=== PATIENT | female | born 1990 | race Caucasian/White ===

== ENCOUNTER 2024-01-18 21:23 | Outpatient (REF) | payer BC, SELFPAY ==
[2024-01-24 00:06] LABS: Age Gdln ACOG Testing Note (.); HPV Aptima Negative (Negative); IGP, Aptima HPV, rfx 16/18,45 Note (.)
== END 2024-01-18 21:24 | disposition home or self-care (01) ==
LOC: LAB 21:23
PROVIDERS: Visit Provider Obstetrics & Gynecology
DX: Z01.419 Encounter for gynecological examination (general) (routine) without abnormal findings (principal)
CPT/HCPCS: 87624; 88175

== ENCOUNTER 2024-11-29 14:21 | Outpatient (OUT) | payer BC, SELFPAY | END 2024-11-29 14:22 | disposition home or self-care (01) | LOC: PST 14:21 | PROVIDERS: PCP Nurse Practitioner Family; Visit Provider Obstetrics & Gynecology | DX: Z01.818 Encounter for other preprocedural examination (principal); N90.60 Unspecified hypertrophy of vulva; N94.10 Unspecified dyspareunia; N90.89 Other specified noninflammatory disorders of vulva and perineum ==

== ENCOUNTER 2024-12-07 06:04 | Day surgery (SDC) | payer BC, SELFPAY ==
--- OUTSIDE RECORDS SUMMARY | 2024-07-17 08:13 | XMS_ITS | Continuity of Care Document ---
Author Organization [facility] Address [address] [place] [address] Phone Care Team Providers Care Mixer Helper Name Role Phone Williamsmaritza SHANIQUE Milton Unavailable Unavailable Allergies, Adverse Reactions, Alerts Substance Reaction Status Criticality No Known Allergies Active No Inform ation Medications Medication Instructions Dosage Effective Dates (start - stop) Status Comments Wellbutrin XL 300 mg 24 hr tablet, extended release take 1 tablet by oral route every day 300 MG - Active metformin 500 mg tablet take 1 tablet by oral route 2 times every day with morning and evening meals 500 MG - Active One Daily Essential 400 mcg tablet - Active Vitamin D3 100 mcg (4,000 unit) capsule - Active Sprintec (28) 0.25 mg-35 mcg tablet take 1 tablet by oral route every day 1.00 tablet - No Longer Active Problems Condition Type Effective Dates (start - stop) Clini altaf Status Comments No Known Problems Procedures Procedure Date Bitewings Four Films Periodic Oral Eval Estab Patient 2023 Prophylaxis Adult High Risk Nutrit Couns For Control Of Alfred Dis Jun Oral Hygiene Instruction Prophylaxis Adult Nutrit Couns For Control Of Alfred Dis Feb Oral Hygiene Instruction Bitewings Four Films Intraoral-periapical 1st Film [id number] Additional Jul [id number] Additional Jul Prophylaxis Adult Low Risk Nutrit Couns For Control Of Alfred Dis Jul Oral Hygiene Instruction Prophylaxis Adult Oral Hygiene Instruction Oral Hygiene Instruction Resin Three Surfaces Anterior 1 Resin Three Surfaces Anterior 1 Treatment Completed Prophylaxis Adult Oral Hygiene Instruction Resin Three Surfaces Anterior 1 Resin Three Surfaces Anterior 1 Resin Three Surfaces Anterior 1 Resin Three Surfaces Anterior 1 Oral Hygiene Instruction Nutrit Couns For Control Of Alfred Dis Jun Limited Oral Eval Oral Hygiene Instruction Resin Composite 2s; Posterior 0 Resin Composite 2s; Posterior 0 Panoramic Film Bitewings Four Films Comp Oral Eval New/estab Patient 2019 Oral Hygiene Instruction Oral Hygiene Instruction Advance Directives Directive Yes / No Effective Date File Name No Information Encounters Encounter Description Practice Location Reason(s) For Visit Diagnoses Date Provider Providers Copied on Encounter [facility], [address] [place] [address], [id number], tel:[phone] Dental Clinic PA (chief complaint) Encounter for screening for dental disordersBody mass index [BMI] 26.0-26.9, adult Williamsmaritza Rockal. [address] [place], [place], [id number], [place]. tel:[phone] [facility], [address] [place] [address], [id number], [place] tel:[phone] Dental Clinic PA (chief complaint) Encounter for screening for dental disorders Mo BAY Milton. [address] [place], [place], [id number], [place]. tel:[phone] [facility], [address] [place] [address], [id number], [place] tel:[phone] Dental Clinic Adult Prophy (chief complaint) Encounter for screening for dental disorders Mo Allen. . tel:[phone] [facility], [address] [place], [place], [id number], [place] tel:[phone] Dental Clinic prophy (chief complaint) Encounter for screening for dental disorders Jean Claude Ramires. [address] [place], [address], [place]. tel:[phone] [facility], [address] [place], [place], [id number], [place] tel:[phone] Dental Clinic filling (chief complaint) Encounter for screening for dental disorders Brittani Gsapar. [address] [place], [place], [id number], [place]. tel:[phone] [facility], [address] [place], [place], [id number], [place] tel:[phone] Dental Clinic prophy (chief complaint) Encounter for screening for dental disorders Abdiaziz Boo. [address] [place], [place], [id number], [place]. tel:[phone] [facility], [address] [place], [place], [id number], [place] tel:[phone] Dental Clinic filling (chief complaint) Encounter for screening for dental disorders Brittani Gaspar. [address] [place], [place], [id number], [place]. tel:[phone] [facility], [address] [place], [place], [id number], [place] tel:[phone] Dental Clinic Encounter for screening for dental disorders Brittani Gaspar. [address] [place], [place], [id number], [place]. tel:[phone] [facility], [address] [place] [address], [id number], [place] tel:[phone] Dental Clinic filling (chief complaint) Encounter for screening for dental disorders Brittani DDS Huebrt. [address] [place], [place], [id number], [place]. tel:[phone] [facility], [address] [place], [place], [id number], [place] tel:[phone] Dental Clinic dental new (chief complaint) Encounter for screening for dental disorders Brittani TOUSSAINTS Hubert. [address] [place], [place], [id number], [place]. tel:[phone] Family History Family Member Type Diagnosis Age At Onset Mother Problem Alive and well Father Problem Alive and well Father Problem small cell carcinoma Payers Payer name Insurance type Covered green party ID Sharda alfredocipriano(elzbieta) [employer]am[employer] DPPO Dental Claims CI [id number] Social History Type Description Quantity Date Captured Comments Alcohol Use Details Caffeine Use Details coffee and soda 2 cups per day Tobacco Use Status Current non-smoker Smoking Status Never smoker Non-Smoking Tobacco Use Details : No Details Available : No Details Available Sex Female Sexual Orientation Straight or heterosexual Gender Identity Female Vital Signs Date / Time: Height Weight BMI Pulse Rate Blood Pressure Temperature Respiratory Rate Body Surface Area Head Circumference Head Circ. Percentile Wt./Jakub. Percentile BMI percentile Pulse Ox Inhaled Ox 12:16 PM 64.00 in 70.398 kg (155.20 lbs) 26.6 4 kg/m eter (2) 66 /min 122/78 mm[Hg] 98.80 F 1.78 meter(2) Chief Complaint And Reason For Visit From encounter dated '07/17/2024 12:13'. PA (chief complaint). Description: PA Reason For Referral Reason For Referral No Information Plan Of Treatment Date Type Action Status Goal Hep A. Due on du e Goal PRAPARE ASSESSMENT. Due on D due Goal Depression screening. Due on due Goal Influenza vaccine. Due on due Goal Tdap Vaccine. Due on 2023 due Goal Hepatitis C screening. Due o n due Goal HPV. Due on due Goal RLP. Due on due Goal Unhealthy drug use screening . Due on due Goal Tdap. Due on due Goal Dietary manageme nt education, guidance, and counseling completed Goal Depression screening. Due on due Goal Tdap. Due on due Goal PRAPARE ASSESSMENT. Due on A due Goal Tdap Vaccine. Due on 2022 due Goal RLP. Due on due Goal Influenza vaccine. Due on due Goal Influenza vaccine. Due on due Goal Hep A. Due on du e Goal Tdap Vaccine. Due on 2022 due Goal Tdap. Due on due Goal RLP. Due on due Goal PRAPARE ASSESSMENT. Due on due Goal Depression screening. Due on due Referral Ordered: West Cunningham DO timeframe: 6 Months. (related to Body mass index [BMI] 26.0-26.9, adult) ordered Appointment Sade Pradhan BOOKED History Of Present Illness Encounter Date Complaint History Of Prese nt Illness JOAQUÍN YANES JOAQUÍN YANES Adult Prophy Adult Prophy prophy prophy filling continue with tr eatment prophy prophy filling continue with tr eatment filling filling dental new dental new Functional Status Date Functional Assessmen t No Information Instructions Date Instruction Additional Infor mation Giving encouragement to exercise Related to Body mass index [BMI] 26.0-26.9, adult Dietary management e ducation, guidance, and counseling Related to Body mass index [BMI] 26.0-26.9, adult Assessments Type Assessment Date assessment Encounter for screening for dent al disorders assessment Body mass index [BMI] 26.0-26.9, adult Patient Care Teams Name Effective Dates (start - stop) Status Members No Information
[2024-11-29 14:53] VITALS: BP 96/62; PULSE 82; TEMP 36.4; O2SAT 98; BMI 26.4
[2024-12-07] VITALS (13 sets, daily range): BP systolic 90–121; BP diastolic 57–80; PULSE 70–102; TEMP 36.3–36.4; O2SAT 97–100; BMI 26.1
--- OUTSIDE RECORDS SUMMARY | 2024-12-07 06:08 | XMS_ITS | Encounter Summary ---
Author Organization [facility] Address [address] [place] [address] Care Team Providers Care Dragline Engineer Name Role Phone Emerita Mitchell Unavailable [phone] Encounter Details Date Type Department Care Team (Late st Contact Info) Description 01/23/2024 Abstract [facility] [address] [facility] [place] [address] Justin Boston, [address] [place], [place] [id number] Social History Tobacco Use Types Packs/Day Years Used Date Smoking Tobacco: Never Smokeless Tobacco: Never Alcohol Use Standard Drinks/Week Comments Yes 0 (1 standard drink = 0.6 oz pur e alcohol) occasional Comments Unknown Sex and Gender Information Value Date Recorded Sex Assigned at Female 09/01/2023 8:41 AM EST Legal Sex Female 8:26 PM EDT Gender Identity Female 09/01/2023 8:41 AM EST Sexual Orientation Straight 09/01/2023 8: 41 AM EST documented as of this encounter Plan of Treatment Upcoming Encounters Date Type Department Care Team (Late st Contact Info) Description 01/23/2025 4:00 PM EDT Office Visit [facility] [address] [place] [address] Justin Boston, DO [address] [place] [address] [address] [place], [place] [id number] documented as of this encounter Visit Diagnoses Not on filedocumented in this encounter Care Teams Dragline Engineer Relationship Specialty Start Date End Date Emerita Mitchell APRN-MIKE [address] [facility] [address] [id number] PCP - Sandee Jones 10/17/2305/17 documented as of this encounter
--- OUTSIDE RECORDS SUMMARY | 2024-12-07 06:08 | XMS_ITS | Clinical Summary ---
Author Organization [facility] Address [address] [place] [address] Care Team Providers Care Lottery Clerk Name Role Phone Unavailable Primary Care Provider Unavailabl e Allergies No known active allergies Medications cholecalciferol (Vitamin D-3) 25 MCG (1000 UT) capsule Take 25 mcg by mouth Daily Active metFORMIN XR (Glucophage-XR) 500 MG 24 hr tabletIndication s:Insulin resistance,PCOS (polycystic ovarian syndrome) Take 1 tablet (500 mg) by mouth in the evening. Take with meals Do not crush, chew, or split. 30 tablet 11 01/18/2024 Active medroxyPROGESTER one (Provera) 10 MG tabletIndication s:PCOS (polycystic ovarian syndrome) Take 1 tablet (10 mg) by mouth Daily for 10 days 10 tablet 01/18/2024 Active buPROPion XL (Wellbutrin XL) 300 MG 24 hr tablet Take 300 mg by mouth Daily Do not crush, chew, or split. Active tretinoin (Retin-A) 0.05 % creamIndications :Acne vulgaris Apply to face, once daily at evening/nig ht time. Wash off in AM. 30 day supply 45 g 09/12/2024 Active clindamycin (Clindagel) 1 % gelIndications:A cne vulgaris Apply to face once a day 60 g 09/12/2024 Active Active Problems No known active problems Encounters Date Type Department Care Team Description 11/12/2024 1:40 PM EDT Consult [facility] [address] [place] [address] [place] [address] Justin Boston, Pre-op examination; Labia enlarged; Labial irritation; Dyspareunia, female 11/12/2024 Bamboo flowsheet [facility] [address] [place] [address] Justin Boston, DO 11/06/2024 Travel 10/22/2024 2:40 PM EDT Office Visit [facility] OB [address] [place] [address] [place] [address] Justin Boston, DO Dyspareunia, female; Labia enlarged; Labial irritation 10/22/2024 Bamboo flowsheet [facility] [address] [place] [address] Justin Boston, 10/22/2024 Travel 09/12/2024 2:05 PM EST Office Visit [facility] [address] [place] [phone] Emerita Mitchell, FRAUD ANALYST-CARPENTRY INSTRUCTOR Acne vulgaris 09/12/2024 Bamboo flowsheet [facility] [address] [place] [address] Emerita Mitchell FRAUD ANALYST-CARPENTRY INSTRUCTOR 09/12/2024 Travel 09/11/2024 Travel from Last 3 Months Family History Medical History Relation Name Comments No Known Problems Daughter Cancer Father No Known Problems Son 1 No Known Problems Son 2 Melanoma Neg Hx Relation Name Status Comments Daughter Alive Father Alive Mother Alive Son 1 Alive Son 2 Alive Social History Tobacco Use Types Packs/Day Years Used Date Smoking Tobacco: Never Smokeless Tobacco: Never Tobacco Cessation:Counseling Given: Not Answered Alcohol Use Standard Drinks/Week Comments Yes 0 (1 standard drink = 0.6 oz pur e alcohol) occasional Comments Unknown Sex and Gender Information Value Date Recorded Sex Assigned at Female 09/01/2023 8:41 AM EST Legal Sex Female 8:26 PM EDT Gender Identity Female 09/01/2023 8:41 AM EST Sexual Orientation Straight 09/01/2023 8: 41 AM EST Last Filed Vital Signs Vital Sign Reading Time Taken Comments Blood Pressure 92/60 11/12/2024 1:58 PM EDT Pulse - - Temperature - - Respiratory Rate - - Oxygen Saturation - - Inhaled Oxygen Concentration - - Weight 69.6 kg (153 lb 8 oz) 11/12/2024 1:58 PM EDT Height 163.8 cm (5' 4.5 ) 08/23/2022 12:00 PM ES T Body Mass Index 25.94 08/23/2022 12:00 PM EST Plan of Treatment Upcoming Encounters Date Type Department Care Team (Late st Contact Info) Description 01/23/2025 4:00 PM EDT Office Visit [facility] [address] [place] [phone] Justin Boston DO [address] [place], [place] [id number] Health Maintenance Due Date Last Done Comments Influenza Vaccine (Season Ended) 2025 04/22/20 23, 06/23/2022 Cervical Cancer Screening 01/17/2029 HPV/Cotest 01/17/2029 Pap Smear 01/17/2029 01/18/2024 Procedures Procedure Name Priority Date/Time Associated Diagnosis Comments PAP SMEAR Routine 01/18/2024 12:00 AM EDT from Last 3 Months or Most Recently Relevant to Health Maintenance Results * Pap Smear (01/18/2024 12:00 AM EDT) Swab Cervical swab / Unknown Justin Boston DO LAB CYTOLOGY ORDERABLES Final Re sult EXTERNAL LAB from Last 3 Months or Most Recently Relevant to Health Maintenance Insurance BS
--- OUTSIDE RECORDS SUMMARY | 2024-12-07 06:08 | XMS_ITS | Encounter Summary ---
Author Organization [facility] Address [address] [place] [address] Care Team Providers Care Asbestos Pipe Supervisor Name Role Phone Emerita Mitchell Unavailable Encounter Details Date Type Department Care Team (Late st Contact Info) Description 01/25/2024 Orders Only [facility] [address] [facility] [place] [id number] Katlin Mariano [place] [address] [facility] [place] [address] Social History Tobacco Use Types Packs/Day Years [...] 01/23/2025 4:00 PM EDT Office Visit [facility] [address] [facility] [place] [address] Justin Boston DO [address] [facility] [place] [address] documented as of this encounter Procedures Procedure Name Priority Date/Time Associated Diagnosis Comments PAP SMEAR Routine 01/18/2024 12:00 AM EDT documented in this encounter Results * Pap Smear (01/18/2024 12:00 AM EDT) Swab Cervical swab / Unknown Justin Boston DO LAB CYTOLOGY ORDERABLES Final Re sult EXTERNAL LAB documented in this encounter Visit Diagnoses Not on filedocumented in this encounter Care Teams Asbestos Pipe Supervisor Relationship Specialty Start Date End Date Emerita Mitchell, PACKAGING SALES CONSULTANT-SALES COUNSELOR [address] [place] [address] PCP - Sandee Commercial 10/17/2305/17 documented as of this encounter
--- OUTSIDE RECORDS SUMMARY | 2024-12-07 06:08 | XMS_ITS | Clinical Summary ---
Author Organization [facility] Address [address] [place] [address] Phone Care Team Providers Care Airport Control Operator Name Role Phone Unavailable Primary Care Provider Unavailabl e Social History Tobacco Use Types Packs/Day Years Used Date Smoking Tobacco: Never Assessed Comments Unknown Sex and Gender Information Value Date Recorded Sex Assigned at Not on file Legal Sex Female 3:43 AM EST Gender Identity Not on file Sexual Orientation Not on file Plan of Treatment Not on file
--- OUTSIDE RECORDS SUMMARY | 2024-12-07 06:08 | XMS_ITS | Clinical Summary ---
Author Organization [facility] Address [address] [place] [address] Care Team Providers Care Recreation Leader Name Role Phone OmahaJairo pappas ANDRES - PROCUREMENT PROFESSIONAL LOGISTICS Primary Care Provider + Allergies No known active allergies Medications Multiple Vitamins-Minerals (THERAPEUTIC MULTIVITAMIN-MINE RALS) tablet Take 1 tablet by mouth daily Active vitamin D 25 MCG (1000 UT) CAPS Take by mouth A ctive tretinoin (RETIN-A) 0.025 % cream APPLY TO FACE AT BEDTIME TOLERATED, HOLD FOR DRYNESS OR IRRITATION Active zinc 50 MG TABS tablet Take 1 tablet by mouth daily Active clindamycin 1 % gel 5 Active metFORMIN (GLUCOPHAGE-XR) 500 MG extended release tablet 5 Active buPROPion (WELLBUTRIN XL) 300 MG extended release tabletIndications :Attention deficit hyperactivity disorder (ADHD), combined type Take 1 tablet by mouth every morning 90 tablet 1 5 Active Active Problems No known active problems Immunizations Immunization Administration Dates Next Due COVID-19, MODERNA BLUE borde r, Primary or Immunocompromised, (age 12y+), IM, 100 mcg/0.5mL 06/20/2021,11/11/2020,10/14/2020 Influenza, FLUCELVAX, (age 6 mo+), MDCK, Quadv PF, 0.5mL 04/22/2023,06/23/2022 Family History Medical History Relation Name Comments Asthma Brother 1 Ej Depression Brother 2 Christophelizabeth Gibbs High Cholesterol Brother 2 Christmelanie Lambkofi High Cholesterol Brother 3 Ej Gibbs Alcohol Abuse Father Flaquito Cancer Father Flaquito Small cell lung cancer. November 2021. Depression Father Flaquito High Cholesterol Father Flaquito High Cholesterol Paternal Aunt Cherise Keyesrle Hearing Loss Paternal Grandfather Eliseo Atrial Fibrillation Paternal Grandmother Dianna Magana rt High Cholesterol Paternal Grandmother Dianna Gibbs High Cholesterol Paternal Uncle Hoang Gibbs Relation Name Status Comments Brother 1 Ej Brother 2 Vel Gibbs Brother 3 Ej Lambkofi Father Flaquito Paternal Aunt Cherise Az Paternal Grandfather Eliseo Paternal Grandmother Dianna Gibbs Paternal Uncle Hoang Gibbs Social History Tobacco Use Types Packs/Day Years Used Date Smoking Tobacco: Never Smokeless Tobacco: Never Tobacco Cessation:Counseling Given: Yes Alcohol Use Standard Drinks/Week Comments Yes 1 (1 standard drink = 0.6 oz pure alcohol) Comsumption is rare. Typically on special occasions. [facility] Utilities Answer Date Recorded In the past 12 months has th e [employer], gas, oil, or water [email or web address] threatened to shut off services in your home? No 08/27/2024 Overall Financial Resource Strain (CARDIA) Answe r Date Recorded How hard is it for you to pa y for the very basics like food, housing, medical care, and heating? Not hard at all 03/29/2024 PHQ-2 Answer Date Recorded PHQ-9 Total Score 0 07/24/2024 Hunger Vital Sign Answer Date Recorded Within the past 12 months, y ou worried that your food would run out before you got the money to buy more. Never true 08/27/19 25 Within the past 12 months, t he food you bought just didn't last and you didn't have money to get more. Never true 08/27/2024 PRAPARE - Transportation Answer Date Re corded In the past 12 months, has l ack of transportation kept you from medical appointments or from getting medications? No 08/18 In the past 12 months, has l ack of transportation kept you from meetings, work, or from getting things needed for daily living? No 08/27/2024 Housing Stability Vital Sign Answer Juan e Recorded Unable to Pay for Housing in the Last Year Not o n file 03/18/2023 Number of Places Lived in the Last Year Not on f ile 03/18/2023 In the last 12 months, was t here a time when you did not have a steady place to sleep or slept in a long-term (including now)? No 03/18/2023 Housing Stability Vital Sign Answer Juan e Recorded In the last 12 months, was t here a time when you were not able to pay the mortgage or rent on time? No 08/27/2024 In the past 12 months, how m any times have you moved where you were living? 0 08/27/2024 At any time in the past 12 m [facility], were you homeless or living in a long-term (including now)? No 08/27/2024 Food Insecurity Answer Date Recorded Within the past 12 months, y ou worried that your food would run out before you got the money to buy more. 1 08/27/2024 Within the past 12 months, t he food you bought just didn't last and you didn't have money to get more. 1 08/27/2024 Comments No Sex and Gender Information Value Date Recorded Sex Assigned at Female 09/15/2023 6:33 PM EST Legal Sex Female 7:27 PM EDT Gender Identity Female 09/15/2023 6:33 PM EST Sexual Orientation Straight 09/15/2023 6: 33 PM EST Last Filed Vital Signs Vital Sign Reading Time Taken Comments Blood Pressure 118/74 08/27/2024 2:20 PM EST Pulse 105 08/27/2024 2:20 PM EST Temperature 37.1 C (98.7 F) 08/27/2024 2:20 PM EST Respiratory Rate - - Oxygen Saturation 98% 08/27/2024 2:20 PM EST Inhaled Oxygen Concentration - - Weight 69.1 kg (152 lb 6.4 oz) 08/27/2024 2:20 P M EST Height 162.6 cm (5' 4 ) 08/27/2024 2:20 PM EST Body Mass Index 26.16 08/27/2024 2:20 PM EST Plan of Treatment Health Maintenance Due Date Last Done Comments Varicella vaccine (1 of 2 - 13+ 2-dose series) 10/22/2003 HIV screen 2005 Hepatitis C screen 2008 DTaP/Tdap/Td vaccine (1 - Tdap) 2009 Hepatitis B vaccine (1 of 3 - 19+ 3-dose series) 2009 Pap smear 01/15/2018 01/15/2015 Cervical cancer screen 2020 HPV (without or with Pap) 2020 COVID-19 Vaccine (4 - 2023-2 5 season) 2024 06/20/2021, 11/11/2020, 10/14/2020 Flu vaccine (Season Ended) 02/15/202504/22, 06/23/2022 Depression Screen 07/24/2025 07/24/2024, 07/24/2024 HPV vaccine Aged Out No longer eligi ble based on patient's age to complete this topic Hepatitis A vaccine Aged Out No longe r eligible based on patient's age to complete this topic Hib vaccine Aged Out No longer eligi ble based on patient's age to complete this topic Meningococcal (ACWY) vaccine Aged Out No longer eligible based on patient's age to complete this topic Meningococcal B vaccine Aged Out No l onger eligible based on patient's age to complete this topic Pneumococcal 0-49 years Vaccine Aged Out No longer eligible b ased on patient's age to complete this topic Polio vaccine Aged Out No longer elig ible based on patient's age to complete this topic Procedures Procedure Name Priority Date/Time Associated Diagnosis Comments PAP SMEAR Routine 01/15/2015 from Last 3 Months or Most Recently Relevant to Health Maintenance Results * HM PAP SMEAR (01/15/2015) Historical Provider HEALTH MAINTENANCE Final Result from Last 3 Months or Most Recently Relevant to Health Maintenance Insurance [place] [employer] Care Teams Recreation Leader Relationship Specialty Start Date End Date Jairo Wheatley APRN - MIKE [address] [place] [id number] PCP - General Family Medicine 03/18/23
[2024-12-07 06:20] LABS: Basophils Percent Auto 0.8 % (0.2-2.0); Eosinophils Absolute Auto 0.2 10^3/uL (0.0-0.7); Eosinophils Percent Auto 3.3 % (0.9-7.0); Hematocrit 39.8 % (36.0-48.0); Hemoglobin 13.4 g/dL (12.0-16.0); Immature Granulocytes Abs Auto 0.01 10^3/uL (0.00-0.03); Immature Granulocytes Pct Auto 0.2 % (0.0-0.5); Lymphocytes Absolute Auto 1.7 10^3/uL (1.2-3.8); Lymphocytes Percent Auto 33.4 % (20.5-60.0); Mean Corpuscular HGB Conc 33.7 g/dL (29.9-35.2); Mean Corpuscular Hemoglobin 30.9 pg (26.7-34.0); Mean Corpuscular Volume 91.7 fL (81.0-99.0); Mean Platelet Volume 9.4 fL (9.5-13.5); Monocytes Absolute Auto 0.4 10^3/uL (0.3-0.8); Monocytes Percent Auto 7.5 % (1.7-12.0); Neutrophils Absolute Auto 2.9 10^3/uL (1.4-6.5); Neutrophils Percent Auto 54.8 % (43.0-75.0); Platelet Count 243 10^3/uL (150-450); Red Blood Count 4.34 10^6/uL (4.20-5.40); Red Cell Distribution Width 11.9 % (11.0-15.0); White Blood Count 5.2 10^3/uL (4.0-11.0)
[2024-12-07 06:43] LABS: HCG Quantitative <1 mIU/mL
[2024-12-07] MEDS: LACTATED RINGER'S SOLUTION 1,000 ML 50 ML IV ×2 (06:51→08:11)
[2024-12-07 06:52] LABS: Glucometer 84 mg/dL (74-106)
[2024-12-07] MEDS: BACITRACIN OINTMENT 28.4 GM TUBE 1 APPLIC TOPICAL (08:44)
--- NOTE | 2024-12-07 08:50 | PC.NURSE ---
Peripad changed for scant amount bloody drainage
[2024-12-07] MEDS: HYDROMORPHONE HCL 0.5 MG/0.5 ML SYRINGE IV ×2 (08:59→09:09)
--- NOTE | 2024-12-07 09:03 | PM.ONB ---
Brief Operative Note Date of procedure: 12/07/24 Pre-op diagnosis general: dyspareunia, enlarged labia minora Post-op diagnosis: same as pre-op Procedure: NAME OF PROCEDURE: [ bilateral labiaplasty] PROCEDURE: The patient was taken back to the Operating Room where she was prepped and draped in normal sterile fashion after being placed under general anesthesia without difficulty. She was also placed in the dorsal lithotomy position. the right labia minor was tented up using an alee clamp after being marked with a marker, the excess labia was removed using a knife and metzenbaum scissors, the base was coagulated using a bovie, the skin was reapproximated using 4-0 vicryl, this was performed on the contralateral side, excellent hemostasis was noted, All instruments were removed from the patient?s vagina. The patient tolerated the procedure well. Sponge, lap and needle counts were correct times two. The patient was taken to the Recovery Room in stable condition.Room in stable condition. Anesthesia: MAC Surgeon: Justin Boston Estimated blood loss (mL): 5 Pathology: other (rt and lt labia) Condition: stable Disposition: PACU Urinary Catheter Management Urinary Catheter Management Straight: Cath placed during this visit: no
--- NOTE | 2024-12-07 09:17 | PC.NURSE ---
peripad dry; ice pack in perineal area
[2024-12-07] MEDS: ONDANSETRON PF 4 MG/2 ML VIAL IV (09:48)
--- NOTE | 2024-12-07 10:01 | PC.NURSE ---
c/o nausea; no emesis; medicated with Zofran IV as ordered
[2024-12-07] MEDS: PROMETHAZINE HCL 25 MG TABLET PO (10:12)
[2024-12-07] MEDS: ONDANSETRON 4 MG RAPDIS TABLET SL ×2 (11:33)
--- NOTE | 2024-12-07 12:04 | PC.NURSE ---
11:10: Pt alert and oriented. C/o nausea and dizziness. Pt able to sip water. States she would like to rest a little bit longer before discharging. 11:35: Pt IV discontinued. Upon sitting up to get dressed she became nauseous and had small emesis of bile. ODT zofran given per Dr. Boston. Pt informed that prescription for Zofran was sent electronically into Dr. Boston.
== END 2024-12-07 11:44 | disposition home or self-care (01) ==
PROVIDERS: PCP Nurse Practitioner Family; Visit Provider Obstetrics & Gynecology
PROC: (CPT 906; principal; 2024-12-07 07:30)
DX: N90.60 Unspecified hypertrophy of vulva (principal); N90.89 Other specified noninflammatory disorders of vulva and perineum; N94.10 Unspecified dyspareunia
CPT/HCPCS: 56620; 36415; 82948; 84702; 85025; 88304; J0131; J1100; J1171; J1885; J2250; J2405; J2704; J3010; Q0162; Q0169

== ENCOUNTER 2025-02-18 15:40 | Outpatient (REF) | payer BC, SELFPAY ==
--- OUTSIDE RECORDS SUMMARY | 2025-02-18 13:00 | XMS_ITS | Encounter Summary ---
Author Organization [facility] Address [address] [place] [address] Care Team Providers Care Advertising Assistant Name Role Phone Unavailable Primary Care Provider Unavailabl e Reason for Visit * Reason Comments Well Women Visit Encounter Details Date Type Department Care Team (Late st Contact Info) Description 02/18/2025 1:00 PM EDT Office Visit [facility] [address] [place] [phone] Michelle Sorenson PA [address] [facility] [address] [place] [address] Well woman exam with routine gynecological exam; Insulin resistance; PCOS (polycystic ovarian syndrome); Encounter for surveillance of contraceptive pills Social History Tobacco Use Types Packs/Day Years Used Date Smoking Tobacco: Never Smokeless Tobacco: Never Alcohol Use Standard Drinks/Week Comments Yes 0 (1 standard drink = 0.6 oz pur e alcohol) occasional Comments No Sex and Gender Information Value Date Recorded Sex Assigned at Female 09/01/2023 8:41 AM EST Legal Sex Female 8:26 PM EDT Gender Identity Female 09/01/2023 8:41 AM EST Sexual Orientation Straight 09/01/2023 8: 41 AM EST documented as of this encounter Last Filed Vital Signs Vital Sign Reading Time Taken Comments Blood Pressure 130/78 02/18/2025 1:13 PM EDT Pulse - - Temperature - - Respiratory Rate - - Oxygen Saturation - - Inhaled Oxygen Concentration - - Weight 67 kg (147 lb 12.8 oz) 02/18/2025 1:13 PM EDT Height - - Body Mass Index 24.98 08/23/2022 12:00 PM EST documented in this encounter Progress Notes * Theresa Giles, SENIOR ATTORNEY - 02/18/2025 1:00 PM EDT Reason for Appointment: Patient ID: Sade Pradhan is a 34 y.o. female who presents for Well Women Visit Patient presents today for Annual Exam. MEDICATIONS Current Outpatient Medications Medication Instructions cholecalciferol (VITAMIN D-3) 25 mcg, Daily clindamycin (Clindagel) 1 % gel Apply to face once a day drospirenone-ethinyl estradiol (Ftaemeh, Gianvi) 3-0.02 MG tablet 1 tablet, Oral, Daily metFORMIN XR (GLUCOPHAGE-XR) 500 mg, Oral, Daily with evening meal, Do not crush, chew, or split. tretinoin (Retin-A) 0.05 % cream Apply to face, once daily at evening/night time. Wash off in AM. 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 Migraine PCOS (polycystic ovarian syndrome) Perineal abscess Suburethral cyst Vaginal lesion Social History Tobacco Use Smoking status: Never Smokeless tobacco: Never Substance Use Topics Alcohol use: Yes Comment: occasional Drug use: Never FAMILY HISTORY Family History Problem Relation Name Age of Onset Cancer Father No Known Problems Daughter No Known Problems Son No Known Problems Son Melanoma Neg Hx SURGICAL HISTORY Past Surgical History: Procedure Laterality Date CYST REMOVAL Right 2001 hand LABIAPLASTY Bilateral 12/07/2024 OTHER SURGICAL HISTORY 1991 Tear correction REVIEW OF SYSTEMS Review of Systems: Review of Systems Constitutional: Negative. HENT: Negative. Eyes: Negative. Respiratory: Negative. Cardiovascular: Negative. Gastrointestinal: Negative. Genitourinary: Negative. Musculoskeletal: Negative. Skin: Negative. Neurological: Negative. All other systems reviewed and are negative. Hematological: Negative. Endocrine: Negative. Allergic/Immunologic: Negative. OBJECTIVE Objective: Physical Exam Constitutional: Appearance: Normal appearance. She is well-developed. Genitourinary: Vulva normal. Breasts: Breasts are soft. Right: Normal. Left: Normal. Cardiovascular: Rate and Rhythm: Normal rate and regular rhythm. Pulmonary: Effort: Pulmonary effort is normal. Breath sounds: Normal breath sounds. Abdominal: General: Bowel sounds are normal. There is no distension. Palpations: Abdomen is soft. Tenderness: There is no abdominal tenderness. There is no guarding or rebound. Musculoskeletal: General: No swelling. Normal range of motion. Right lower leg: No edema. Left lower leg: No edema. Neurological: Mental Status: She is alert and oriented to person, place, and time. Skin: General: Skin is warm and dry. Psychiatric: Mood and Affect: Mood normal. Behavior: Behavior normal. Vitals and nursing note reviewed. Exam conducted with a senior it auditor present. Vitals: Estimated body mass index is 24.98 kg/m?? as calculated from the following: Height as of 08/23/22: 5' 4.5 . Weight as of this encounter: 147 lb 12.8 oz. BP: 130/78 Patient's last menstrual period was 01/06/2025. ASSESSMENT & PLAN ICD-10-CM 1. Well woman exam with routine gynecological exam Z01.419 Pap Smear HPV DNA probe, amplified 2. Insulin resistance E88.819 metFORMIN XR (Glucophage-XR) 500 MG 24 hr tablet 3. PCOS (polycystic ovarian syndrome) E28.2 metFORMIN XR (Glucophage-XR) 500 MG 24 hr tablet 4. Encounter for surveillance of contraceptive pills Z30.41 drospirenone-ethinyl estradiol (Fatemeh, Gianvi) 3-0.02 MG tablet Annual Exam: Patient presents today for an annual exam. Patient states she is doing well and has no complaints. Pap was obtained without difficulty. Patient is on Fatemeh to help with Acne from PCP. Patient does skipa month or two of her cycle. Orders Placed This Encounter Procedures HPV DNA probe, amplified Follow Up: Patient is to return in one year for annual unless needed otherwise. Documented by Theresa Giles LPN on behalf of: Aide Massey NP documented in this encounter Plan of Treatment Upcoming Encounters Date Type Department Care Team (Late st Contact Info) Description 02/24/2026 11:00 AM EDT Procedure Visit [facility] [address] [place] [address] Michelle Sorenson PA [address] [facility] [place] [address] Scheduled Orders Name Type Priority Associated Diagnoses Orde r Schedule Pap Smear Pathology and Cytology Routine Well woman exam with routine gynecological exam Ordered: 02/18/2025 HPV DNA probe, amplified Microbiology Routine Well woman exam with routine gynecological exam Ordered: 02/18/2025 documented as of this encounter Visit Diagnoses Diagnosis Well woman exam with routine gynecological exam Routine gynecological examination Insulin resistance Other abnormal glucose PCOS (polycystic ovarian syndrome) Polycystic ovaries Encounter for surveillance of contraceptive pills documented in this encounter
--- OUTSIDE RECORDS SUMMARY | 2025-02-18 15:43 | XMS_ITS | Encounter Summary ---
Author Organization [facility] Address [address] [place] [address] Care Team Providers Care Employee Development Specialist Name Role Phone Emerita Mitchell Unavailable Encounter Details Date Type Department Care Team (Late st Contact Info) Description 01/25/2024 Orders Only [facility] [address] [place] [address] [place] [address] Katlin Mariano [place] [address] [facility] [place] [address] Social History Tobacco Use Types Packs/Day Years [...] Description 02/24/2026 11:00 AM EDT Procedure Visit [facility] [address] [place] [address] Michelle Sorenson PA [address] [facility] [address] [place], [place] [id number] documented as of this encounter Procedures Procedure Name Priority Date/Time Associated Diagnosis Comments PAP SMEAR Routine 01/18/2024 12:00 AM EDT documented in this encounter Results * Pap Smear (01/18/2024 12:00 AM EDT) Swab Cervical swab / Unknown us Justin Darvin DO LAB CYTOLOGY ORDERABLES Final Re sult EXTERNAL LAB documented in this encounter Visit Diagnoses Not on filedocumented in this encounter Care Teams Employee Development Specialist Relationship Specialty Start Date End Date Emerita Mitchell, CONCRETE BUCKET HOOKER-RADIATION OFFICER [address] [place] [address] PCP - Sandee Commercial 10/17/2305/17 documented as of this encounter
--- OUTSIDE RECORDS SUMMARY | 2025-02-18 15:43 | XMS_ITS | Encounter Summary ---
Author Organization [facility] Address [address] [place] [address] Care Team Providers Care Jet Dyeing Machine Operator Name Role Phone Emerita Mitchell Unavailable [phone] Encounter Details Date Type Department Care Team (Late st Contact Info) Description 01/23/2024 Abstract [facility] [address] [place] [address] Justin Boston DO [address] [facility] [address] [place] Mahajan, [place] [address] Social History Tobacco Use Types Packs/Day Years [...] EDT Procedure Visit [facility] [address] [place] [phone] Michelle Sorenson PA [address] [facility] [address] [place], [place] [id number] documented as of this encounter Visit Diagnoses Not on filedocumented in this encounter Care Teams Jet Dyeing Machine Operator Relationship Specialty Start Date End Date Emerita Mitchell APRN-MIKE [address] [place] [address] PCP - Sandee Jones 10/17/2305/17 documented as of this encounter
--- OUTSIDE RECORDS SUMMARY | 2025-02-18 15:43 | XMS_ITS | Encounter Summary ---
Author Organization [facility] Address [address], [address] [place] [address] Care Team Providers Care Collar Folder Operator Name Role Phone Jairo Wheatley ANDRES - CHIEF CREDIT OFFICER Primary Care Provider + Encounter Details Date Type Department Care Team (Late st Contact Info) Description 03/24/2023 Orders Only [facility] Specialty/Primary Care [address], [address] [place] [address] Provider, MD Laxmi Social History Tobacco Use Types Packs/Day Years Used Date Smoking Tobacco: Never Smokeless Tobacco: Never Overall Financial Resource Strain (CARDIA) Answe r Date Recorded How hard is it for you to pa y for the very basics like food, housing, medical care, and heating? Not hard at all 03/18/2023 PHQ-2 Answer Date Recorded PHQ-9 Total Score 0 03/18/2023 Hunger Vital Sign Answer Date Recorded Within the past 12 months, y ou worried that your food would run out before you got the money to buy more. Never true 03/18/20 23 Within the past 12 months, t he food you bought just didn't last and you didn't have money to get more. Never true 03/18/2023 PRAPARE - Transportation Answer Date Re corded Lack of Transportation (Medical) Not on file 03/18/2023 In the past 12 months, has l ack of transportation kept you from meetings, work, or from getting things needed for daily living? No 03/18/2023 Housing Stability Vital Sign Answer Juan e Recorded Unable to Pay for Housing in the Last Year Not o n file 03/18/2023 Number of Places Lived in the Last Year Not on f ile 03/18/2023 In the last 12 months, was t here a time when you did not have a steady place to sleep or slept in a longterm (including now)? No 03/18/2023 Food Insecurity Answer Date Recorded Within the past 12 months, y ou worried that your food would run out before you got the money to buy more. 1 03/18/2023 Within the past 12 months, t he food you bought just didn't last and you didn't have money to get more. 1 03/18/2023 Comments Unknown Sex and Gender Information Value Date Recorded Sex Assigned at Female 09/15/2023 6:33 PM EST Legal Sex Female 7:27 PM EDT Gender Identity Female 09/15/2023 6:33 PM EST Sexual Orientation Straight 09/15/2023 6: 33 PM EST documented as of this encounter Plan of Treatment Not on file documented as of this encounter Procedures Procedure Name Priority Date/Time Associated Diagnosis Comments HM PAP SMEAR Routine 01/15/2015 documented in this encounter Results * HM PAP SMEAR (01/15/2015) us Historical Provider HEALTH MAINTENANCE Final Result documented in this encounter Visit Diagnoses Not on filedocumented in this encounter Care Teams Collar Folder Operator Relationship Specialty Start Date End Date Jairo Wheatley APRN - CNP [facility] [address] PCP - General Family Medicine 03/18/23 documented as of this encounter
--- OUTSIDE RECORDS SUMMARY | 2025-02-18 15:43 | XMS_ITS | Clinical Summary ---
Author Organization [facility] Address [address] [place] [address] Phone Care Team Providers Care Information Services Consultant Name Role Phone Unavailable Primary Care Provider [...]
--- OUTSIDE RECORDS SUMMARY | 2025-02-18 15:43 | XMS_ITS | Clinical Summary ---
Author Organization [facility] Address [address], [address] [place] [address] Care Team Providers Care Devops Architect Name Role Phone Jairo Wheatley ANDRES - FLOW MACHINE OPERATOR Primary Care Provider + Allergies No known [...] mouth daily Active clindamycin 1 % gel 07/23/19 25 Active metFORMIN (GLUCOPHAGE-XR) 500 MG extended release tablet 07/23/19 25 Active buPROPion (WELLBUTRIN XL) 300 MG extended release tabletIndications :Attention deficit hyperactivity disorder (ADHD), combined type Take 1 tablet by mouth every morning 90 tablet 1 07/29/19 25 Active Additional Information Patient not taking.Reported on 12/13/2024 drospirenone-ethi nyl estradiol (LARON) 3-0.02 MG per tabletIndications :Amenorrhea Take 1 tablet by mouth daily 1 packet 5 01/30/20 25 Active phentermine (ADIPEX-P) 37.5 MG tabletIndications :Encounter for weight management Take 1 tablet by mouth every morning (before breakfast) for 60 days. Max Daily Amount: 37.5 mg 30 tablet 1 12/14/19 25 025 Active Problems No known active problems Encounters Date Type Department Care Team Description 01/29/2025 Orders Only [facility] Specialty/Primary Care [address], [address] [place] [address] Jairo Wheatley APRN - CNP Amenorrhea (Primary Dx) 12/13/2024 9:30 AM EDT Telemedicine [facility] Specialty/Primary Care [address], [address] [place] [address] aJiro Wheatley APRN - CNP Encounter for weight management from Last 3 Months Immunizations Immunization Administration Dates Next Due COVID-19, MODERNA BLUE borde r, Primary or Immunocompromised, (age 12y+), IM, 100 mcg/0.5mL 06/20/2021,11/11/2020,10/14/2020 Influenza, FLUCELVAX, (age 6 mo+), MDCK, Quadv PF, 0.5mL 04/22/2023,06/23/2022 Family History Medical History Relation Name Comments Asthma Brother 1 Ej Depression Brother 2 Christopher Lambert High Cholesterol Brother 2 Christopher Lambert High Cholesterol Brother 3 Ej Gibbs Alcohol Abuse Father Flaquito Cancer Father Flaquito Small cell lung cancer. November 2021. Depression Father Flaquito High Cholesterol Father Flaquito High Cholesterol Paternal Aunt Cherise Az Hearing Loss Paternal Grandfather Eliseo Atrial Fibrillation Paternal Grandmother Dianna Magana rt High Cholesterol Paternal Grandmother Dianna Gibbs High Cholesterol Paternal Uncle Hoang Gibbs Relation Name Status Comments Brother 1 Ej Brother 2 Christopher Lambert Brother 3 Ej Lambert Father Flaquito Paternal Aunt Cherise Az Paternal Grandfather Eliseo Paternal Grandmother Dianna Gibbs Paternal Uncle Hoang Gibbs Social History Tobacco Use Types Packs/Day Years Used Date Smoking Tobacco: Never Smokeless Tobacco: Never Tobacco Cessation:Counseling Given: Yes Alcohol Use Standard Drinks/Week Comments Yes 1 (1 standard drink = 0.6 oz pure alcohol) Comsumption is rare. Typically on special occasions. [facility] Utilities Answer Date Recorded In the past 12 months has [employer], gas, oil, or water [employer] [facility] [employer] threatened to shut off services in your [...] place to sleep or slept in a penitentiary (including now)? No 03/18/2023 Housing Stability Vital Sign Answer Juan e Recorded In the last 12 months, was t here a time when you were not able to pay the mortgage or rent on time? No 08/27/2024 In the past 12 months, how m any times have you moved where you were living? 0 08/27/2024 At any time in the [facility], were you homeless or living in a penitentiary (including now)? No 08/27/2024 Food Insecurity Answer [...] season) 2024 06/20/2021, 11/11/2020, 10/14/2020 Flu vaccine (#1) 02/15/2025 04/22/2023, 06/23/2022 Depression Screen 07/24/2025 07/24/2024, 07/24/2024 HPV [...] Diagnosis Comments HM PAP SMEAR Routine 01/15/2015 from Last 3 Months or Most Recently Relevant to Health Maintenance Results * HM PAP SMEAR (01/15/2015) Historical Provider HEALTH MAINTENANCE Final Result from Last 3 Months or Most Recently Relevant to Health Maintenance Insurance [facility] Care Teams Devops Architect Relationship Specialty Start Date End Date Jairo Wheatley APRN - CNP [address] [place] [id number] PCP - General Family Medicine 03/18/23
--- OUTSIDE RECORDS SUMMARY | 2025-02-18 15:43 | XMS_ITS | Clinical Summary ---
Author Organization [facility] Address [address] [place] [address] Care Team Providers Care Cook Boat Name Role Phone Unavailable Primary Care Provider Unavailabl e Allergies No known active allergies Medications cholecalciferol (Vitamin D-3) 25 MCG (1000 UT) capsule Take 25 mcg by mouth Daily Active tretinoin (Retin-A) 0.05 % creamIndications: Acne vulgaris Apply to face, once daily at evening/ni ght time. Wash off in AM. 30 day supply 45 g 09/12/19 25 Active clindamycin (Clindagel) 1 % gelIndications:Ac ne vulgaris Apply to face once a day 60 g 09/12/19 25 Active drospirenone-ethi nyl estradiol (Dulce Weldon) 3-0.02 MG tabletIndications :Encounter for surveillance of contraceptive pills Take 1 tablet by mouth Daily 28 tablet 02/19/20 25 Active metFORMIN XR (Glucophage-XR) 500 MG 24 hr tabletIndications :Insulin resistance,PCOS (polycystic ovarian syndrome) Take 1 tablet (500 mg) by mouth in the evening. Take with meals Do not crush, chew, or split. 30 tablet 02/19/20 25 026 Active metFORMIN XR (Glucophage-XR) 500 MG 24 hr tabletIndications :Insulin resistance,PCOS (polycystic ovarian syndrome) Take 1 tablet (500 mg) by mouth in the evening. Take with meals Do not crush, chew, or split. 30 tablet 01/18/20 24 025 Discontinued(Re order) medroxyPROGESTERo ne (Provera) 10 MG tabletIndications :PCOS (polycystic ovarian syndrome) Take 1 tablet (10 mg) by mouth Daily for 10 days 10 tablet 01/18/20 24 025 Discontinued phentermine (Adipex-P) 37.5 MG tablet Take 37.5 mg by mouth in the morning. Take before meals. 12/14/19 025 Discontinued metFORMIN XR (Glucophage-XR) 500 MG 24 hr tabletIndications :Insulin resistance,PCOS (polycystic ovarian syndrome) Take 1 tablet (500 mg) by mouth in the evening. Take with meals Do not crush, chew, or split. 30 tablet 11 01/22/20 025 Discontinued(Re order) drospirenone-ethi nyl estradiol (Fatemeh, Dulce) 3-0.02 MG tablet Take 1 tablet by mouth Daily 01/30/20 025 Discontinued(Re order) Active Problems No known active problems Encounters Date Type Department Care Team Description 02/18/2025 1:00 PM [place] [id number] Michelle Sorenson PA Well woman exam with routine gynecological exam; Insulin resistance; PCOS (polycystic ovarian syndrome); Encounter for surveillance of contraceptive pills 02/18/2025 Bamboo flowsheet [facility] [address] [place] [address] Michelle Sorenson PA 01/21/2025 Telephone [facility] [address] [place] [address] Jeri Mark MA 12/21/2024 Telephone [facility] [place] [address] Jeri Mrak MA 12/17/2024 9:20 AM ED[place] [address] Michelle Sorenson PA Postop check 12/17/2024 Bamboo flowsheet [facility] [address] Michelle Sorenson PA 12/16/2024 Travel 12/13/2024 Telephone [facility] [address] [place] [address] Lee MarianoEDNA dobson 12/07/2024 Clinisync Result Encounter [facility] External Department Unsolicited Justin Boston DO from Last 3 Months Family History Medical [...] 12.8 oz) 02/18/2025 1:13 PM EDT Height 163.8 cm (5' 4.5 ) 08/23/2022 12:00 PM ES T Body Mass Index 24.98 08/23/2022 12:00 PM EST Plan of Treatment Upcoming Encounters Date Type Department Care Team (Late st Contact Info) Description 02/24/2026 11:00 AM EDT Procedure Visit [facility] [address] [place] [phone] Michelle Sorenson PA [address] [place], [place] [id number] Health Maintenance Due Date Last Done Comments Influenza Vaccine (#1) 2025 04/22/2023, 2021 Cervical Cancer Screening 01/17/2029 HPV/Cotest 01/17/2029 Pap Smear 01/17/2029 01/18/2024 Procedures Procedure Name Priority Date/Time Associated Diagnosis Comments [facility] PREG QUANT HCG Routine 12/07/2024 6: 13 AM EDT ALL CBC WITH AUTO DIFF Routine 12/07/2024 6:13 AM EDT PAP SMEAR Routine 01/18/2024 12:00 AM EDT from Last 3 Months or Most Recently Relevant to Health Maintenance Results * [facility] PREG QUANT HCG (12/07/2024 6:13 AM EDT) Pathologist [facility] HCG QUANTITATIVE <1 mIU/mL TB Comment: 5-50 0.2-1 WEEK 50-500 1-2 WEEKS 100-5,000 2-3 WEEKS 500-10,000 3-4 WEEKS 1,000-50,000 4-5 WEEKS 10,000-100,000 5-6 WEEKS 15,000-200,000 6-8 WEEKS 10,000-100,000 2-3 MONTHS 12/07/2024 6:13 AM EDT 12/07/2024 6:14 AM EDT Narrative [facility] - 12/07/2024 6:43 AM EDT us Justin Darvin DO CLINIS[facility]NC Final Result [facility] * (ABNORMAL) ALL CBC WITH AUTO DIFF (12/07/2024 6:13 AM EDT) Pathologist [facility] TB WBC 5.2 4.0 - 11.0 10 3/uL TBH TB RBC 4.34 4.20 - 5.40 10 6/uL [facility] TB HGB 13.4 12.0 - 16.0 g/dL TB TB HCT 39.8 36.0 - 48.0 % TB TB MCV 91.7 81.0 - 99.0 fL TB TBH MCH 30.9 26.7 - 34.0 pg TBH TBH MCHC 33.7 29.9 - 35.2 g/dL TBH TBH RDW 11.9 11.0 - 15.0 % TBH TBH PLT 243 150 - 450 10 3/uL TBH TBH MPV 9.4(L) 9.5 - 13.5 fL TBH NEUTROPHILS PERCENT AUTO 54.8 43.0 - 75.0 % TBH LYMPHOCYTES PERCENT AUTO 33.4 20.5 - 60.0 % TBH MONOCYTES PERCENT AUTO 7.5 1.7 - 12.0 % TBH TBH EO % 3.3 0.9 - 7.0 % TBH BASOPHILS PERCENT AUTO 0.8 0.2 - 2.0 % TBH IMMATURE GRANULOCYTES PCT AUTO 0.2 0.0 - 0.5 % TBH NEUTROPHILS ABSOLUTE AUTO 2.9 1.4 - 6.5 10 3/uL TBH LYMPHOCYTES ABSOLUTE AUTO 1.7 1.2 - 3.8 10 3/uL TBH MONOCYTES ABSOLUTE AUTO 0.4 0.3 - 0.8 10 3/uL TBH TBH EO # 0.2 0.0 - 0.7 10 3/uL TBH BASOPHILS ABSOLUTE AUTO 0.0 0.0 - 0.1 10 3/uL TBH IMMATURE GRANULOCYTES ABS AUTO 0.01 0.00 - 0.03 10 3/uL TBH 12/07/2024 6:13 AM EDT 12/07/2024 6:14 AM EDT Narrative [facility] - 12/07/2024 6:26 AM EDT Justin Darvin DO CLINIS[facility]NC Final Result [facility] * Pap Smear (01/18/2024 12:00 AM EDT) Swab Cervical swab / Unknown us Justin Darvin DO LAB CYTOLOGY ORDERABLES Final Re sult EXTERNAL LAB from Last 3 Months or Most Recently Relevant to Health Maintenance Insurance [facility]
[2025-02-20 15:08] LABS: Age Gdln ACOG Testing Note (.); IGP, Aptima HPV, rfx 16/18,45 Note (.)
== END 2025-02-18 15:41 | disposition home or self-care (01) ==
LOC: LAB 15:40
PROVIDERS: PCP Nurse Practitioner Family; Visit Provider Physician Assistant
DX: Z01.419 Encounter for gynecological examination (general) (routine) without abnormal findings (principal)
CPT/HCPCS: 87624; 88175